=== PATIENT | female | born 2000 | race American Indian/Alaskan Native ===

== ENCOUNTER 2021-09-08 20:36 | Emergency (ER) | payer BC | END 2021-09-08 23:28 | disposition home or self-care (01) | LOC: MW.ED 20:36 | DX: O99.891 Other specified diseases and conditions complicating pregnancy (principal); R10.31 Right lower quadrant pain; R10.32 Left lower quadrant pain; Z3A.11 11 weeks gestation of pregnancy | CPT/HCPCS: 36415; 81003; 84702; 85025; 99282; 99284 ==